=== PATIENT | female | born 1965 | race Caucasian/White ===

== ENCOUNTER 2017-03-14 01:53 | Emergency (ER) | payer OTHER ==
[2017-03-14 02:03] VITALS: BP 136/92
[2017-03-14] MEDS ORDERED: Lidocaine 1% 10 ML MDV INJECT ONE (02:16)
[2017-03-14] MEDS ORDERED: Lidocaine 1% 50 ML MDV ONE (02:21)
[2017-03-14] MEDS ORDERED: Lidocaine 1% 50 ML MDV INJECT ONE (02:27)
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
[2017-03-14] MEDS ORDERED: Doxycycline 100 MG Cap PO ONE (02:50)
--- NOTE | 2017-03-17 09:38 | CR ---
Left foot: Two views of the left foot were obtained. Comparison: No previous study. No opaque foreign object is seen. No fracture or other bony abnormality is identified. Impression: 1. No abnormality is appreciated on two-view left foot study. Diagnostic code #1
== END 2017-03-14 03:12 | disposition home or self-care (01) ==
LOC: JD.ED 01:53
DX: S91.322A Laceration with foreign body, left foot, initial encounter (principal); W25.XXXA Contact with sharp glass, initial encounter; Y92.410 Unspecified street and highway as the place of occurrence of the external cause
CPT/HCPCS: 12041; 73620; 99284; A9270; 12001; 99283-25